=== PATIENT | male | born 1985 | race Caucasian/White ===

== ENCOUNTER 2021-06-12 15:51 | Emergency (ER) | payer OTHER, SELFPAY ==
--- NOTE | 2021-06-12 | ECG_ITS ---
Test Reason : CHEST PAIN Blood Pressure : / mmHG Vent. Rate : 115 BPM Atrial Rate : 115 BPM P-R Int : 142 ms QRS Dur : 098 ms QT Int : 308 ms P-R-T Axes : 059 079 057 degrees QTc Int : 426 ms Sinus tachycardia Possible Left atrial enlargement Incomplete right bundle branch block Abnormal ECG No previous ECGs available Referred By: Generic ED Physician Electronically Signed By:BUTCH DORAN
--- NOTE | ~2021-06-12 | CT_ITS ---
EXAMINATION: CTA CHEST PE STUDY CLINICAL INFORMATION: Chest pain tachycardia COVID-19 COMPARISON: Chest x-ray earlier tonight TECHNIQUE: Prior to contrast administration, noncontrast localization images were obtained. After the administration of 70 mL of Omnipaque 350 IV contrast, contiguous thin slice helical images were obtained through the thorax. Reformatted MIP images in the coronal and sagittal planes were obtained at the acquisition workstation. This CT examination was performed using dose optimization techniques as appropriate, variously including the following: *Automated exposure control *Adjustment of mA and/or kV according to patient size (this includes techniques or standardized protocols for targeted exams where dose is matched to indication/reason for exam; i.e. extremities or head) *Use of iterative reconstruction technique DLP: 327 mGy-cm. FINDINGS: The bolus timing on this study was acceptable for visualization of the pulmonary arterial tree. There are no intraluminal pulmonary arterial filling defects present to suggest pulmonary embolism. Underlying emphysematous changes seen in the lung apices right more so than left. There is patchy bilateral consolidative airspace disease seen some of which demonstrate air bronchograms. Infectious etiology would be strongly suspected with this appearance. Underlying medical lesions would be considered less likely with this distribution and pattern. No significant hilar or mediastinal adenopathy. There is no evidence of pleural effusion or pneumothorax. The heart is normal in size. No evidence of ventricular septal bowing or right heart strain. Great vessels are normal. Otherwise the mediastinum is unremarkable. There is no pericardial effusion or pericardial thickening. Limited evaluation of the upper abdominal viscera is unremarkable. CT/CT angio chest PE protocol IMPRESSION: No evidence for emboli. Patchy bilateral airspace disease some which demonstrate dense consolidations. Multifocal pneumonia would be suspected. There is underlying emphysematous changes with bulla seen more so in the right lung apex VTE: Negative
--- NOTE | ~2021-06-12 | XR_ITS ---
EXAMINATION: XR CHEST CLINICAL INFORMATION: Chest pain COMPARISON: None TECHNIQUE: 2 views of the chest were obtained. FINDINGS: Cardia mediastinal silhouette is normal in size. There is a 2.6 x 1.2 cm airspace opacity in the left upper lobe and a nodular opacity in the right lung base on the frontal radiograph. Hazy right suprahilar opacity. No pleural effusion or pneumothorax. XR/XR chest 2V IMPRESSION: Nodular opacities in the left upper lobe and right lung base as well as a hazy opacity in the right suprahilar region. This may be secondary to an infectious/inflammatory processes however underlying nodules are also possible. Recommend evaluation with CT scan of the chest to better evaluate.
[2021-06-12 16:04] VITALS: BP 126/81; PULSE 121; RESP 18; TEMP 37.4; O2SAT 97; BMI 20.9
--- NOTE | 2021-06-12 17:06 | ED_ITS ---
HPI - General Adult General Chief complaint: General Medical Stated complaint: chest pain not urinating fever +COVID Time Seen by Provider: 06/12/21 17:06 Source: patient History of Present Illness HPI narrative: Patient with a history of pneumothorax in his early 20s, known COVID-19 with symptoms x8 days. Presents with cough fevers chills and inability to tolerate p.o. liquids or solids. He states he has pain on breathing and coughing. Positive nausea vomiting and diarrhea. He states he has been unable to keep down solid food for 4 days. He has been taking liquids but then vomiting none. No dyspnea or wheezing. Risk factors for severe COVID disease include smoking. No history of hypertension diabetes or excessive BMI. No history of asthma pulmonary disease Related Data Previous Rx's Medication Instructions Recorded azithromycin 250 mg tablet See Rx Instructions .ROUTE 06/12/21 .COMPLEX #6 tab ondansetron HCl 4 mg tablet 4 mg PO Q8H PRN #10 tab 06/12/21 Allergies Allergy/AdvReac Type Severity Reaction Status Date / Time No Known Allergies Allergy Verified 06/12/21 16:11 Review of Systems Constitutional: Comments: Fevers chills and general malaise Cardiovascular: Comments: Palpitations. Chest pain with cough and deep inspiration Respiratory: Comments: Cough without dyspnea Gastrointestinal: Comments: Nausea vomiting diarrhea without abdominal pain Musculoskeletal: Comments: Generalized body aches Integumentary/Breasts: Comments: No rash PMFSH Social History Social History Patient Tobacco Use Status: Current everyday Tobacco user Smoked in Last 30 Days: Yes Use of substances other than those prescribed or required for medical reasons: Yes Substance Use Type: Marijuana Advance Directives: No Advance Directives Information Provided: No Physical Exam Vital Signs: Vital Signs: Last Vital Signs Temp 99.6 F 06/12/21 19:37 Pulse 110 H 06/12/21 19:37 Resp 19 06/12/21 19:37 BP 125/76 06/12/21 19:37 Pulse Ox 97 06/12/21 19:37 BMI result Body Mass Index 20.9 Const: Other: Awake alert no acute distress. Tachycardic. Blood pressure normal. Temperature 99.3? HENMT: Other: Mucosa dry Resp: Other: Clear and equal bilaterally with good air entry. No wheezes rales or rhonchi Cardio: Other: Tachycardic without murmurs rubs or gallops GI: Other: Soft nontender nondistended Skin: Other: Warm pink and dry without rash Neuro: Other: Alert and oriented. Nonfocal. Ambulatory Course Course Course Narrative: Chest pain in the setting of COVID-19 infection Musculoskeletal pain Bacterial superinfection PE Pneumothorax Dehydration Acute kidney injury Electrolyte imbalance IV fluids [place] [address] with a left shift. D-dimer [address] scan shows patchy bilateral airspace disease with some areas of dense consolidation. No evidence of PE His serology is positive for COVID. Given his high white count, however, and the findings on the CT scan, I suspect a bacterial secondary infection. Will treat with ceftriaxone and Zithromax. 8:26 p.m.. Repeat Zofran. P.o. fluid challenge. If tolerated, will discharge home Medical Decision Making Lab Data Result diagrams: 06/12/21 17:30 06/12/21 17:30 Labs: Lab Results 06/12/21 06/12/21 06/12/21 Range/Units 17:30 17:30 17:30 WBC 14.1 H (4.8-10.8) X10*3/uL RBC 4.46 L (4.60-5.80) X10*6/uL Hgb 14.9 (14.0-18.0) g/dl Hct 41.9 L (42.0-52.0) % MCV 93.9 (80.0-98.0) fL MCH 33.4 H (27.0-33.0) pg MCHC 35.6 (31.0-36.0) g/dl RDW 12.6 (11.0-16.0) % Plt Count 189 (160-400) X10*3/uL MPV 10.2 (9.4-12.4) fL Immature Gran % (Auto) 0.4 (0.0-0.4) % Neut % (Auto) 87.6 H (45-73) % Lymph % (Auto) 5.6 L (20-40) % [place] % (Auto) 6.3 (2-11) % Eos % (Auto) 0.0 (0-4) % Baso % (Auto) 0.1 (0-2) % Lymph # (Auto) 0.8 L (1.2-4.9) X10*3/uL [place] # (Auto) 0.9 (0.1-1.2) X10*3/uL Eos # (Auto) 0.0 (0.0-0.4) X10*3/uL Baso # (Auto) 0.0 (0.0-0.2) X10*3/uL Abs Immat Gran (auto) 0.06 H (0.00-0.03) X10*3/uL Absolute Neuts (auto) 12.3 H (2.0-8.3) x10*3/uL Absolute Nucleated RBC 0.000 (0.0-0.012) X10*3/uL Nucleated RBC % (auto) 0.0 (0.0-0.2) /100WBC D-Dimer High Sensitivty 792 NG/ML Sodium 132 L (135-145) mmol/L Potassium 3.6 (3.3-5.1) mmol/L Chloride 95 L (96-108) mmol/L Carbon Dioxide 24 (22-29) mmol/L Anion Gap 17 (12-20) BUN 18 H (9-16) mg/dL Creatinine 1.60 H (0.5-1.4) mg/dL Estim Creat Clear Calc 60.8 Estimated GFR 49 Random Glucose 121 H (60-115) mg/dL Calcium 8.6 (8.4-10.2) mg/dL Total Bilirubin 1.3 H (0.0-1.0) mg/dL AST 23 (5-37) U/L ALT 25 (0-40) U/L Alkaline Phosphatase 72 (39-117) U/L Total Protein 7.0 (6.5-8.0) g/dL Albumin 3.9 (3.5-5.0) g/dL COVID-19 ([place]) (Negative) COVID-19 Clin Com 06/12/21 Range/Units 17:30 WBC (4.8-10.8) X10*3/uL RBC (4.60-5.80) X10*6/uL Hgb (14.0-18.0) g/dl Hct (42.0-52.0) % MCV (80.0-98.0) fL MCH (27.0-33.0) pg MCHC (31.0-36.0) g/dl RDW (11.0-16.0) % Plt Count (160-400) X10*3/uL MPV (9.4-12.4) fL Immature Gran % (Auto) (0.0-0.4) % Neut % (Auto) (45-73) % Lymph % (Auto) (20-40) % [place] % (Auto) (2-11) % Eos % (Auto) (0-4) % Baso % (Auto) (0-2) % Lymph # (Auto) (1.2-4.9) X10*3/uL [place] # (Auto) (0.1-1.2) X10*3/uL Eos # (Auto) (0.0-0.4) X10*3/uL Baso # (Auto) (0.0-0.2) X10*3/uL Abs Immat Gran (auto) (0.00-0.03) X10*3/uL Absolute Neuts (auto) (2.0-8.3) x10*3/uL Absolute Nucleated RBC (0.0-0.012) X10*3/uL Nucleated RBC % (auto) (0.0-0.2) /100WBC D-Dimer High Sensitivty NG/ML Sodium (135-145) mmol/L Potassium (3.3-5.1) mmol/L Chloride (96-108) mmol/L Carbon Dioxide (22-29) mmol/L Anion Gap (12-20) BUN (9-16) mg/dL Creatinine (0.5-1.4) mg/dL Estim Creat Clear Calc Estimated GFR Random Glucose (60-115) mg/dL Calcium (8.4-10.2) mg/dL Total Bilirubin (0.0-1.0) mg/dL AST (5-37) U/L ALT (0-40) U/L Alkaline Phosphatase (39-117) U/L Total Protein (6.5-8.0) g/dL Albumin (3.5-5.0) g/dL COVID-19 ([place]) Positive A (Negative) COVID-19 Clin Com See Note Discharge Plan Discharge Clinical Impression: COVID-19, Acute dehydration Pneumonia Qualifiers: Pneumonia type: due to unspecified organism Laterality: bilateral Lung location: unspecified part of lung Qualified Code(s): J18.9 - Pneumonia, unspecified organism Patient Disposition: Home, Self-Care Instructions: Dehydration (ED), Community Acquired Pneumonia (ED), COVID-19 (Coronavirus Disease 2019) (ED) Prescriptions: New ondansetron HCl 4 mg tablet 4 mg PO Q8H PRN (Reason: nausea and vomiting) Qty: 10 RF: 0 azithromycin 250 mg tablet See Rx Instructions .ROUTE .COMPLEX Qty: 6 RF: 0
[2021-06-12] MEDS: 0.9 % Sodium Chloride 1,000 ML 999 ML IV ×2 (17:32→18:21)
[2021-06-12 17:35] LABS: MANUAL DIFF FLAG NO
[2021-06-12 17:38] VITALS: BP 118/81; PULSE 107; RESP 17; TEMP 37.1; O2SAT 95
[2021-06-12 17:38] LABS: Basophils Percent Auto 0.1 % (0-2); Hematocrit 41.9 % (42.0-52.0); Hemoglobin 14.9 g/dl (14.0-18.0); Imm Gran Abs Auto 0.06 X10*3/uL (0.00-0.03); Imm Gran Pct Auto 0.4 % (0.0-0.4); Lymphocytes Absolute Auto 0.8 X10*3/uL (1.2-4.9); Lymphocytes Percent Auto 5.6 % (20-40); Mean Corpuscular HGB Conc 35.6 g/dl (31.0-36.0); Mean Corpuscular Hemoglobin 33.4 pg (27.0-33.0); Mean Corpuscular Volume 93.9 fL (80.0-98.0); Mean Platelet Volume 10.2 fL (9.4-12.4); Monocytes Absolute Auto 0.9 X10*3/uL (0.1-1.2); Monocytes Percent Auto 6.3 % (2-11); Neutrophils Absolute Auto 12.3 x10*3/uL (2.0-8.3); Neutrophils Percent Auto 87.6 % (45-73); Platelet Count 189 X10*3/uL (160-400); Red Blood Count 4.46 X10*6/uL (4.60-5.80); Red Cell Distribution Width 12.6 % (11.0-16.0); White Blood Count 14.1 X10*3/uL (4.8-10.8)
[2021-06-12] MEDS: Ketorolac Tromethamine 30 MG/ML VIAL IVPUSH (17:41)
[2021-06-12] MEDS: ondansetron HCL 4 MG/2 ML VIAL IVPUSH ×2 (17:42→20:31)
[2021-06-12 17:46] LABS: COVID-19 Test Positive (Negative); IDNOW Serial# 08D9AD1C
[2021-06-12 17:47] LABS: D Dimer High Sensitivity 792 NG/ML
[2021-06-12 17:59] LABS: Alanine Aminotransferase 25 U/L (0-40); Albumin Level 3.9 g/dL (3.5-5.0); Alkaline Phosphatase 72 U/L (39-117); Anion Gap 17 (12-20); Aspartate Amino Transferase 23 U/L (5-37); Bilirubin Total 1.3 mg/dL (0.0-1.0); Blood Urea Nitrogen 18 mg/dL (9-16); Calcium 8.6 mg/dL (8.4-10.2); Carbon Dioxide 24 mmol/L (22-29); Chloride 95 mmol/L (96-108); Creatinine Clr Calc Pharmacy 60.8; Estimated Glomerular Filt Rate 49; Glucose Random 121 mg/dL (60-115); Potassium 3.6 mmol/L (3.3-5.1); Sodium 132 mmol/L (135-145)
[2021-06-12] MEDS: Lidocaine HCl Viscous 2 % 15 ML SOLUTION PO (18:08)
[2021-06-12] MEDS: Magnesium Hydrox/Alum Hydrox 30 ML ORAL.SUSP PO (18:08)
[2021-06-12 18:17] VITALS: BP 115/72; PULSE 100; RESP 23; O2SAT 95
[2021-06-12] MEDS: iohexoL 350 MG/ML 100 ML INFUS..BTL IV (18:54)
[2021-06-12 19:37] VITALS: BP 125/76; PULSE 110; RESP 19; TEMP 37.6; O2SAT 97
[2021-06-12] MEDS: cefTRIAXone sodium 1 GM in 0.9 % Sodium Chloride 50 ML IV (20:31)
[2021-06-12] MEDS: Azithromycin 500 MG TABLET PO (20:32)
[2021-06-12 20:35] VITALS: BP 125/76; PULSE 114; RESP 20; O2SAT 96
--- NOTE | 2021-06-12 20:38 | PC.NURSE ---
pt a&o, no increase sob or chest pain. pt reports being achy in his leg, fluid running and medicated per Mar. Pt had Po challenge and tolerated well .
== END 2021-06-12 22:04 | disposition home or self-care (01) ==
PROVIDERS: Emergency Provider Emergency Medicine; PCP Family Medicine
DX: U07.1 COVID-19 (principal); R07.89 Other chest pain; R50.9 Fever, unspecified; F17.210 Nicotine dependence, cigarettes, uncomplicated; Z71.6 Tobacco abuse counseling; Z79.899 Other long term (current) drug therapy
CPT/HCPCS: 36415; 71046; 71275; 80053; 85025; 85379; 87635; 93005; 96361; 96365; 96375; 96376; 99284; J0696; J1885; J2405; Q9967

== ENCOUNTER 2021-06-28 08:32 | Emergency (ER) | payer OTHER, SELFPAY ==
--- NOTE | ~2021-06-28 | XR_ITS ---
EXAMINATION: XR CHEST CLINICAL INFORMATION: Right-sided chest pain and shortness of breath COMPARISON: Previous chest x-ray and chest CT a 06/12/2021 TECHNIQUE: 2 views of the chest were obtained. FINDINGS: There are patchy areas of bilateral multilobar airspace disease, greatest in the right upper lobe and left lower lobe. These areas appear slightly increased in size from 06/12/2021 exam. No new infiltrate is seen. There is no pleural effusion or pneumothorax. Bony structures are unremarkable. XR/XR chest 2V IMPRESSION: Patchy bilateral airspace disease slightly increased from June 2021 exam. This probably represents bilateral multilobar pneumonia.
[2021-06-28 08:35] VITALS: BP 133/82; PULSE 103; RESP 18; TEMP 36.7; O2SAT 100; BMI 25.0
--- NOTE | 2021-06-28 08:35 | ECG_ITS ---
Test Reason : SOB Blood Pressure : / mmHG Vent. Rate : 096 BPM Atrial Rate : 096 BPM P-R Int : 158 ms QRS Dur : 098 ms QT Int : 348 ms P-R-T Axes : 063 055 054 degrees QTc Int : 439 ms Normal sinus rhythm Normal ECG When compared with ECG of 12-JUN-2021 16:04, Incomplete right bundle branch block is no longer Present Referred By: Vivi Zarate Electronically Signed By:SOWMYA OJEDA MD
--- NOTE | 2021-06-28 08:36 | ED_ITS ---
HPI - Chest Pain General Chief Complaint: Chest Pain Stated Complaint: heavy chest pain Time Seen by Provider: 06/28/21 08:35 Source: patient Mode of arrival: ambulatory Limitations: no limitations History of Present Illness HPI narrative: 35 y/o male with history of COVID 19 earlier this month (06/04), history of PTX in early who presents to the ER with chest pains, coughing and SOB for the last 4-5 days. He reports being seen here on June 12, confirmed to have COVID-19 as well as probable secondary bacterial pneumonia with bilateral infiltrates on CT scan. He was discharged with oral antibiotics. He reports after he completed the antibiotics he was feeling better and no longer having brown phlegm production. About 4-5 days ago he started having increased cough, shortness of breath, and bringing up yellow phlegm. This morning he woke up with central chest pain and right-sided chest pain, worse with coughing and movement. He denies any fever or chills. He denies any difficulty breathing. He states his breathing feels better since coming to the ER. MD complaint: chest pain and chest heaviness Onset (ago): day(s) (4-5) Timing of current episode: constant Prior episodes: Yes Onset: during rest Pain location: substernal and right chest Pain radiation: none Severity: moderate Pain scale (0-10): 5 Quality: heaviness Relieving factors: rest Exacerbating factors: inspiration, palpation and movement Context: recent illness Associated symptoms: cough Treatment prior to arrival: none Risk Factors Coronary artery disease risk factors: smoking history Thoracic aortic dissection risk factors: none Related Data Previous Rx's Medication Instructions Recorded azithromycin 250 mg tablet See Rx Instructions .ROUTE 06/12/21 .COMPLEX #6 tab ondansetron HCl 4 mg tablet 4 mg PO Q8H PRN #10 tab 06/12/21 albuterol sulfate 90 mcg/actuation 1 inh INHALATION QID PRN #6.7 g 06/28/21 aerosol inhaler amoxicillin 875 mg-potassium 1 tab PO Q12H #20 tab 06/28/21 clavulanate 125 mg tablet (Augmentin) benzonatate 100 mg capsule 100 mg PO TID PRN #30 cap 06/28/21 clarithromycin 500 mg tablet 500 mg PO BID #20 tab 06/28/21 prednisone 20 mg tablet 40 mg PO DAILY #10 tab 06/28/21 Allergies Allergy/AdvReac Type Severity Reaction Status Date / Time No Known Allergies Allergy Verified 06/28/21 08:41 Review of Systems Verdana 4l Review of Systems: Verdana 4d Verdana 4d Constitutional: No Fever, No Chills ENT/Mouth: No sore throat, No Rhinorrhea Cardiovascular: + Chest Pain, + SOB, No Orthopnea, No Edema Respiratory: + Cough, + Sputum, No Wheezing, No dyspnea Gastrointestinal: No Nausea, No Vomiting, NoNo Diarrhea, No abdominal Pain Genitourinary: No Dysuria, No Urinary Frequency, No Hematuria Musculoskeletal: No joint pain, No Myalgias Skin: No Skin Lesions, No rash Neuro: + Weakness, No Numbness, No Dizziness, + Headache Psych: No Anxiety/Panic Heme/Lymph: No Bruising, No Lymphadenopathy PMFSH Past Medical History Medical History (Updated 06/28/21 @ 09:29 by KAVEH Etienne) COVID-19 Social History Social History Patient Tobacco Use Status: Current everyday Tobacco user Substance Use Type: Marijuana Advance Directives: No Advance Directives Information Provided: No Physical Exam Verdana 4l Vital Signs: Verdana 4d Verdana 4d Vital Signs: Verdana 4d Verdana 4Bd Last Vital Signs Verdana 4d Portfolio Manager New 4d Portfolio Manager New 4d Temp 98.1 F 06/28/21 08:35 Portfolio Manager New 4d Pulse 98 06/28/21 09:07 Portfolio Manager New 4d Resp 14 06/28/21 09:07 BP 125/79 06/28/21 09:07 Pulse Ox 97 06/28/21 09:07 BMI result Body Mass Index 25.0 Appearance: Alert. Oriented X3. No acute distress. Eyes: Pupils equal, round and reactive to light. ENT: Pharynx normal. Neck: Normal inspection. Neck supple. CVS: Normal heart rate and rhythm. Pulses normal. Right sided anterior chest wall w/ mild tenderness. Respiratory: No respiratory distress. Breath sounds coarse in right upper lobe but no wheezes or rhonchi. Abdomen: Soft and nontender. +BS x4 Skin: Skin warm and dry. Normal skin color. Normal skin turgor. No rashes. Extremities: No lower extremity edema. Negative Albert's sign Neuro: Oriented X 3. No motor deficit. No sensory deficit. Course Course Course Narrative: 35 y/o male with history of recent COVID-19 & PNA, active smoker presenting with recurrent productive cough, SOB and chest pain. SpO2 100% on arrival w/ HR 103. Doubt PE with productive cough. He had a recent negative CTA on 06/12. No FRAGA. Doubt cardiac etiology. Will check EKG, CXR and influenza swab. Reevaluation(s) Reevaluation #1: EKG benign, no STEMI or ischemic changes. CXR w/ bilateral PNA. He remains in no respiratory distress w/ SPO2 100%. Will plan for d/c with double coverage abx for CAP, prednisone, albuterol and recs for Mucinex. Encouraged to f/u with his PCP. Work note provided per request. MDM - Chest Pain Medical Records Data Attestation: I reviewed the patient's medical records. Lab Data Attestation: I reviewed the patient's lab results. ECG Data ECG #1: Attestation: I personally reviewed and interpreted this ECG as follows: ECG interpretation date: 06/28/21 ECG interpretation time: 09:49 Prior ECG tracings: available for review Interpretation: normal sinus rhythm, HR 96 bpm, normal IN interval, no ST segment elevations or depressions. No significant change from 06/12/21. Critical Care Time Critical Care Time Critical Care Time: No Discharge Plan Discharge Clinical Impression: Bilateral pneumonia Patient Disposition: Home, Self-Care Instructions: Community Acquired Pneumonia (DC) Additional Instructions: Your EKG today was normal. Your x-ray showed bilateral pneumonia. Take the prescribed antibiotics as directed - complete the entire course Recommend adding Mucinex 1200 mg two times per day - found over the counter Rest and drink plenty of fluids Do your best to stop or cut back on smoking (especially while you are sick) Follow up with your Primary Care Doctor If your Flu test is positive we will call you If you develop new or worsening symptoms call 911 or come back to the ER for further evaluation. Prescriptions: New amoxicillin-pot clavulanate [Augmentin] 875-125 mg tablet 1 tab PO Q12H Qty: 20 0RF clarithromycin 500 mg tablet 500 mg PO BID Qty: 20 0RF prednisone 20 mg tablet 40 mg PO DAILY Qty: 10 0RF albuterol sulfate 90 mcg/actuation HFA aerosol inhaler 1 inh inhalation QID PRN (Reason: shortness of breath or wheezing) Qty: 6.7 0RF benzonatate 100 mg capsule 100 mg PO TID PRN (Reason: cough) Qty: 30 0RF No Action ondansetron HCl 4 mg tablet 4 mg PO Q8H PRN (Reason: nausea and vomiting) Qty: 10 0RF azithromycin 250 mg tablet See Rx Instructions .ROUTE .COMPLEX Qty: 6 0RF Rx Instructions: For 250 mg dose pack: take 500 mg today (day 1), then 250 mg for 4 days (days 2-5) Stand Alone Forms: Work/School Release Interventions: ED Discharge Assessment Last Done: 06/28/21 09:48
[2021-06-28 09:07] VITALS: BP 125/79; PULSE 98; RESP 14; O2SAT 97
--- NOTE | 2021-06-28 09:50 | PC.NURSE ---
OK FOR DC HOME PER PROVIDER. SWAB SENT. PT AWARE THAT HE WILL BE CALLED WITH SWAB RESULTS.
[2021-06-28 09:52] VITALS: BP 112/82; PULSE 88; RESP 16; O2SAT 98
[2021-06-29 06:56] LABS: IDNOW Serial# 9DD0AD1C; Influenza A Negative (Negative); Influenza B2 Negative (Negative)
== END 2021-06-28 09:53 | disposition home or self-care (01) ==
PROVIDERS: Physician Assistant; Emergency Provider Emergency Medicine; PCP Family Medicine
DX: J15.9 Unspecified bacterial pneumonia (principal); F17.200 Nicotine dependence, unspecified, uncomplicated; F12.90 Cannabis use, unspecified, uncomplicated
CPT/HCPCS: 71046; 87502; 93005; 99283

== ENCOUNTER 2022-06-09 18:35 | Emergency (ER) | payer SELFPAY ==
--- NOTE | ~2022-06-09 | CT_ITS ---
EXAMINATION: CT ABDOMEN AND PELVIS WITHOUT CONTRAST CLINICAL INFORMATION: Left flank pain. Nausea. COMPARISON: None TECHNIQUE: Multidetector volumetric imaging was performed from the superior aspect of the liver through the pubic symphysis. Sagittal and coronal reformatted images were obtained on the technologist's workstation. This CT examination was performed using dose optimization techniques as appropriate, variously including the following: *Automated exposure control *Adjustment of mA and/or kV according to patient size (this includes techniques or standardized protocols for targeted exams where dose is matched to indication/reason for exam; i.e. extremities or head) *Use of iterative reconstruction technique DLP: 537 mGy-cm FINDINGS: LUNG BASES: The visualized lung bases are unremarkable. Small sliding-type hiatal hernia. LIVER, GALLBLADDER, AND BILIARY TREE: The liver is normal in size, shape, and attenuation. No focal hepatic lesion or biliary ductal dilatation is present. The gallbladder is unremarkable with no evidence of radiopaque gallstones, gallbladder wall thickening, or obvious pericholecystic inflammatory changes. PANCREAS: Unremarkable. SPLEEN: Unremarkable. ADRENAL GLANDS: Unremarkable. KIDNEYS AND URETERS: A 2 mm calculus is present within a calyx in the right lower renal pole, 7 cm deep to the skin surface of the right posterior mid axillary line. No additional renal calculi are identified. Kidneys normal in size and contour. Trace left peripelvic fat stranding. No perinephric fat stranding. No suspicious renal lesions are identified on this unenhanced study. A 3 mm calculus is present at the left ureterovesical junction. This produces mild left hydroureteronephrosis. No right-sided hydronephrosis or hydroureter. BLADDER: Unremarkable. GASTROINTESTINAL TRACT: Small sliding type hernia. Stomach, small bowel, and colon are normal in caliber without bowel wall thickening or surrounding inflammatory change. Normal appendix. No intraperitoneal free fluid or free air. ABDOMINAL WALL: No significant hernia is appreciated. LYMPH NODES: No adenopathy. VASCULAR: Minimal calcific atherosclerosis abdominal aorta. No aneurysmal dilatation. PELVIC VISCERA: Small dystrophic calcifications in the prostate gland. Prostate gland is normal in size. OSSEOUS STRUCTURES: No acute osseous abnormalities in the lumbar spine and pelvis. CT/CT abdomen pelvis wo IV con IMPRESSION: 1. A 3 mm calculus at the left ureterovesical junction produces mild left hydroureteronephrosis. 2. A 2 mm nonobstructing calculus in the right lower renal pole. 3. Small sliding-type hiatal hernia. Fleischner guidelines were followed.
--- NOTE | 2022-06-09 18:47 | ED.ABDPAIN ---
HPI - Abdominal Pain General Chief Complaint: Urogenital-Male <KAVEH Pugh - Last Filed: 06/09/22 20:48> Stated Complaint: severe abdominal pain, vomiting <KAVEH Pugh Last Filed: 06/09/22 20:48> Time Seen by Provider: 06/09/22 20:11 <KAVEH Pugh Last Filed: 06/09/22 20:48> Source: patient and family <KAVEH Pugh Last Filed: 06/09/22 20:48> Mode of arrival: ambulatory <KAVEH Pugh Last Filed: 06/09/22 20:48> Limitations: no limitations <KAVEH Pugh Last Filed: 06/09/22 20:48> History of Present Illness HPI narrative: 36yoM presenting to the ED c c/o left back/flank pain radiating to his left lower quadrant with associated nausea that started 2 hours prior to arrival. Reports he has never had this pain in the past. Denies any fevers, vomiting, chest pain or shortness of breath, diarrhea, dysuria hematuria or any other symptoms complaints or concerns at this time. Denies recent travel or sick contacts. <KAVEH Pugh - Last Filed: 06/09/22 20:48> MD elicited complaint: abdominal pain and flank pain <KAVEH Pugh Last Filed: 06/09/22 20:48> Onset (ago): hour(s) (2 hours prior to arrival) <KAVEH Pugh Last Filed: 06/09/22 20:48> Pain Consistency: constant <KAVEH Pugh Last Filed: 06/09/22 20:48> Location: L flank <KAVEH Pugh Last Filed: 06/09/22 20:48> Severity: moderate <KAVEH Pugh Last Filed: 06/09/22 20:48> Quality: aching and sharp <KAVEH Pugh Last Filed: 06/09/22 20:48> Radiation: LLQ <KAVEH Pugh Last Filed: 06/09/22 20:48> Exacerbating factors: nothing <KAVEH Pugh Last Filed: 06/09/22 20:48> Relieving factors: nothing <KAVEH Pugh Last Filed: 06/09/22 20:48> Associated symptoms: nausea <KAVEH Pugh Last Filed: 06/09/22 20:48> Related Data Home Medications: Previous Rx's Medication Instructions Recorded azithromycin 250 mg tablet See Rx Instructions PO .COMPLEX #6 06/12/21 tabs ondansetron HCl 4 mg tablet 4 mg PO Q8H PRN nausea and 06/12/21 vomiting #10 tabs albuterol sulfate 90 mcg/actuation 1 inh inhalation QID PRN shortness 06/28/21 aerosol inhaler of breath or wheezing #6.7 grams amoxicillin 875 mg-potassium 1 tab PO Q12H #20 tabs 06/28/21 clavulanate 125 mg tablet (Augmentin) benzonatate 100 mg capsule 100 mg PO TID PRN cough #30 caps 06/28/21 clarithromycin 500 mg tablet 500 mg PO BID #20 tabs 06/28/21 prednisone 20 mg tablet 40 mg PO DAILY #10 tabs 06/28/21 ketorolac 10 mg tablet 10 mg PO Q8H #14 tabs 06/09/22 levofloxacin 750 mg tablet 750 mg PO DAILY 10 days #10 tabs 06/09/22 ondansetron 4 mg disintegrating 4 mg PO Q8H #14 tabs 06/09/22 tablet oxycodone 5 mg tablet 5 mg PO Q6H PRN pain #14 tabs 06/09/22 tamsulosin 0.4 mg capsule (Flomax) 0.4 mg PO DAILY 5 days #5 caps 06/09/22 <KAVEH Pugh Last Filed: 06/09/22 20:48> Allergies/Adverse Reactions: Allergies Allergy/AdvReac Type Severity Reaction Status Date / Time No Known Allergies Allergy Verified 06/28/21 08:41 <KAVEH Pugh Last Filed: 06/09/22 20:48> Review of Systems Review of Systems Constitutional : No Fever, No Chills, No Night Sweats, No Fatigue, No Malaise Cardiovascular : No Chest Pain, No SOB Respiratory : No Cough, No Sputum, No Wheezing, No Dyspnea Gastrointestinal : + Nausea, No Vomiting, No Diarrhea, + abdominal Pain, No Hematochezia, No Melena Genitourinary : No irregular bleeding, No Dysuria, No Urinary Frequency, No Hematuria,No Urinary Incontinence, No Urgency, + Flank Pain Musculoskeletal : No joint pain, No Myalgias, No Joint Swelling Skin : No Skin Lesions, No rash Neuro : No Weakness, No Numbness, No Paresthesias, No Loss of Consciousness, No Dizziness, No Headache Heme/Lymph: No Lymphadenopathy Endocrine : No Temperature Intolerance <KAVEH Pugh - Last Filed: 06/09/22 20:48> Yes all other systems are reviewed and are negative <KAVEH Pugh - Last Filed: 06/09/22 20:48> [facility] Past Medical History Attestation statement: The following information was validated with the patient. <KAVEH Pugh - Last Filed: 06/09/22 20:48> Source: old records reviewed, obtained from family and nursing notes reviewed <KAVEH Pugh Last Filed: 06/09/22 20:48> Medical History: Medical History COVID-19 <KAVEH Pugh - Last Filed: 06/09/22 20:48> Social History Social History: Social History Alcohol intake: never Patient Tobacco Use Status: Current everyday Tobacco user Smoked in Last 30 Days: Yes Use of substances other than those prescribed or required for medical reasons: No Substance Use Type: Marijuana Advance Directives: No Advance Directives Information Provided: No <KAVEH Pugh Last Filed: 06/09/22 20:48> Physical Exam ED Vital Signs: Vital Signs - 24 hr 06/09/22 18:49 06/09/22 20:21 06/09/22 20:25 Temperature 98.4 F Pulse Rate 67 52 Respiratory Rate 16 18 18 Blood Pressure 140/92 H 117/77 Pulse Oximetry 99 99 Oxygen Delivery Method Room Air Room Air BMI result Body Mass Index 22.3 Vital signs have been reviewed and all within normal limits <KAVEH Pugh Last Filed: 06/09/22 20:48> Vital Signs - 24 hr 06/09/22 18:49 06/09/22 20:21 06/09/22 20:25 Temperature 98.4 F Pulse Rate 67 52 Respiratory Rate 16 18 18 Blood Pressure 140/92 H 117/77 Pulse Oximetry 99 99 Oxygen Delivery Method Room Air Room Air BMI result Body Mass Index 22.3 <Loren Madrid NP - Last Filed: 06/09/22 21:58> Appearance: Alert. Oriented X3. In pain otherwise no other acute distress. Head: Normal external exam. Normocephalic. Eyes: PERRLA. EOMI. Conjunctiva and sclera normal. Eyelids normal. ENT: Pharynx normal. Uvula midline. Moist mucous membranes. No trismus noted. No drooling noted. No muffled voice noted. Neck: Normal inspection. Neck supple. FROM. No adenopathy. No meningeal signs. CVS: Normal heart rate and rhythm. Heart sound normal. No murmurs noted. Pulses normal throughout. Respiratory: No respiratory distress. Painless inspiration. Breath sounds normal. No wheezes/rales/rhonchi noted. Chest nontender. No accessory muscle usage noted or decreased air movement noted. Abdomen: Soft and moderate tenderness palpation the left flank/left lower quadrant with guarding. Nondistended. No rigidity. Bowel sounds normal in all 4 quadrants. No distention noted. No organomegaly noted. No visible injury noted. No rebound tenderness. Negative Rovsing sign. Negative obturator's sign. Negative psoas sign. Negative Hensley sign. Back: + left flank CVA tenderness. No R CVAt noted. Full range of motion noted. Skin: Skin warm and dry. Normal skin color. Normal skin turgor. No rashes/lesions/lacerations noted. Extremities: Extremities exhibit normal range of motion. Extremities nontender. Neuro: Oriented X 3. No motor deficit. No sensory deficit. Reflexes normal. Normal steady gait. CN's II-XII intact bilaterally? <KAVEH Pugh - Last Filed: 06/09/22 20:48> Course Course Course Narrative: 18:50pm - 36yoM presenting to the ED c c/o left back/flank pain radiating to his left lower quadrant with associated nausea that started 2 hours prior to arrival. Reports he has never had this pain in the past. Denies any fevers, vomiting, chest pain or shortness of breath, diarrhea, dysuria hematuria or any other symptoms complaints or concerns at this time. Denies recent travel or sick contacts. Plan: Patient appears very uncomfortable in triage, labs, UA, CT scan abdomen pelvis with IV contrast ordered at this time. Will re-evaluate. <KAVEH Pugh - Last Filed: 06/09/22 20:48> 18:50pm - 36yoM presenting to the ED c c/o left back/flank pain radiating to his left lower quadrant with associated nausea that started 2 hours prior to arrival. Reports he has never had this pain in the past. Denies any fevers, vomiting, chest pain or shortness of breath, diarrhea, dysuria hematuria or any other symptoms complaints or concerns at this time. Denies recent travel or sick contacts. Plan: Patient appears very uncomfortable in triage, labs, UA, CT scan abdomen pelvis with IV contrast ordered at this time. Will re-evaluate. 21:40 CT scan indicates bilateral kidney stones, obstruction to the left, physical exam is indicative pyelonephritis. White count is 16. Feel this patient requires admission however this patient is very upset, would like to leave against medical advice patient is oriented x4, able to make his own decisions. Patient's significant other is with him at bedside very angry as well. Patient understands risks versus benefits of leaving. Discussion with prior provider, patient told part provider that he does not have insurance, does not want fluid or admission. <Loren Madrid NP - Last Filed: 06/09/22 21:58> Reevaluation(s) Reevaluation #1: - labs obtained patient leukocytosis of 16,000. Random glucose 133. Otherwise all other labs are within normal limits. Patient negative for COVID/RSV/flu. - CT scan abdomen pelvis without IV contrast revealed a 3 mm calculus at the left UVJ with mild left hydronephrosis. And a 2 mm nonobstructing calculus in the right lower renal pole. And a small sliding type hiatal hernia otherwise no other acute processes. - therefore patient was given 4 mg of Zofran, 60 mg of IM Toradol, 5 mg of oxycodone and 4 mg of morphine the patient's pain is controlled. He is tolerating p.o. fluids. Therefore at this time will DC home with symptomatic treatment instructions return if any new or worsening symptoms follow up with PCP/neurology. Patient understands agrees with this plan. <KAVEH Pugh - Last Filed: 06/09/22 20:48> Time: 20:23 <KAVEH Pugh - Last Filed: 06/09/22 20:48> Medical Decision Making Lab Data Result Diagrams: 06/09/22 19:35 06/09/22 19:35 <KAVEH Pugh - Last Filed: 06/09/22 20:48> Labs: Lab Results 06/09/22 06/09/22 06/09/22 Range/Units 19:35 19:35 19:35 WBC 16.4 H (4.8-10.8) X10*3/uL RBC 4.67 (4.60-5.80) X10*6/uL Hgb 15.6 (14.0-18.0) g/dl Hct 44.8 (42.0-52.0) % MCV 95.9 (80.0-98.0) fL MCH 33.4 H (27.0-33.0) pg MCHC 34.8 (31.0-36.0) g/dl RDW 12.7 (11.0-16.0) % Plt Count 225 (160-400) X10*3/uL MPV 9.3 L (9.4-12.4) fL Immature Gran % (Auto) 0.4 (0.0-0.4) % Neut % (Auto) 84.7 H (45-73) % Lymph % (Auto) 9.9 L (20-40) % [place] % (Auto) 4.2 (2-11) % Eos % (Auto) 0.5 (0-4) % Baso % (Auto) 0.3 (0-2) % Lymph # (Auto) 1.6 (1.2-4.9) X10*3/uL [place] # (Auto) 0.7 (0.1-1.2) X10*3/uL Eos # (Auto) 0.1 (0.0-0.4) X10*3/uL Baso # (Auto) 0.1 (0.0-0.2) X10*3/uL Abs Immat Gran (auto) 0.06 H (0.00-0.03) X10*3/uL Absolute Neuts (auto) 13.9 H (2.0-8.3) x10*3/uL Absolute Nucleated RBC 0.000 (0.0-0.012) X10*3/uL Nucleated RBC % (auto) 0.0 (0.0-0.2) /100WBC PT 12.0 (10.0-13.1) SEC INR 1.0 (0.9-1.1) Sodium 142 (135-145) mmol/L Potassium 5.1 D (3.3-5.1) mmol/L Chloride 107 (96-108) mmol/L Carbon Dioxide 25 (22-29) mmol/L Anion Gap 15 (12-20) BUN 10 (9-16) mg/dL Creatinine 1.24 (0.5-1.4) mg/dL Estim Creat Clear Calc 82.9 Estimated GFR > 60 Random Glucose 133 H (60-115) mg/dL Calcium 10.2 D (8.4-10.2) mg/dL Magnesium 1.9 (1.6-2.6) mg/dL Total Bilirubin 0.7 (0.0-1.0) mg/dL AST 19 (5-37) U/L ALT 19 (0-40) U/L Alkaline Phosphatase 69 (39-117) U/L Total Protein 7.2 (6.5-8.0) g/dL Albumin 4.7 (3.5-5.0) g/dL Influenza Type A (PCR) (Negative) Influenza Type B (PCR) (Negative) RSV RNA Qual (PCR) (Negative) SARS-CoV-2 RNA (RT-PCR) (Negative) 06/09/22 Range/Units 19:36 WBC (4.8-10.8) X10*3/uL RBC (4.60-5.80) X10*6/uL Hgb (14.0-18.0) g/dl Hct (42.0-52.0) % MCV (80.0-98.0) fL MCH (27.0-33.0) pg MCHC (31.0-36.0) g/dl RDW (11.0-16.0) % Plt Count (160-400) X10*3/uL MPV (9.4-12.4) fL Immature Gran % (Auto) (0.0-0.4) % Neut % (Auto) (45-73) % Lymph % (Auto) (20-40) % [place] % (Auto) (2-11) % Eos % (Auto) (0-4) % Baso % (Auto) (0-2) % Lymph # (Auto) (1.2-4.9) X10*3/uL [place] # (Auto) (0.1-1.2) X10*3/uL Eos # (Auto) (0.0-0.4) X10*3/uL Baso # (Auto) (0.0-0.2) X10*3/uL Abs Immat Gran (auto) (0.00-0.03) X10*3/uL Absolute Neuts (auto) (2.0-8.3) x10*3/uL Absolute Nucleated RBC (0.0-0.012) X10*3/uL Nucleated RBC % (auto) (0.0-0.2) /100WBC PT (10.0-13.1) SEC INR (0.9-1.1) Sodium (135-145) mmol/L Potassium (3.3-5.1) mmol/L Chloride (96-108) mmol/L Carbon Dioxide (22-29) mmol/L Anion Gap (12-20) BUN (9-16) mg/dL Creatinine (0.5-1.4) mg/dL Estim Creat Clear Calc Estimated GFR Random Glucose (60-115) mg/dL Calcium (8.4-10.2) mg/dL Magnesium (1.6-2.6) mg/dL Total Bilirubin (0.0-1.0) mg/dL AST (5-37) U/L ALT (0-40) U/L Alkaline Phosphatase (39-117) U/L Total Protein (6.5-8.0) g/dL Albumin (3.5-5.0) g/dL Influenza Type A (PCR) NEGATIVE (Negative) Influenza Type B (PCR) NEGATIVE (Negative) RSV RNA Qual (PCR) NEGATIVE (Negative) SARS-CoV-2 RNA (RT-PCR) NEGATIVE (Negative) <KAVEH Pugh - Last Filed: 06/09/22 20:48> Lab Results 06/09/22 06/09/22 06/09/22 Range/Units 19:35 19:35 19:35 WBC 16.4 H (4.8-10.8) X10*3/uL RBC 4.67 (4.60-5.80) X10*6/uL Hgb 15.6 (14.0-18.0) g/dl Hct 44.8 (42.0-52.0) % MCV 95.9 (80.0-98.0) fL MCH 33.4 H (27.0-33.0) pg MCHC 34.8 (31.0-36.0) g/dl RDW 12.7 (11.0-16.0) % Plt Count 225 (160-400) X10*3/uL MPV 9.3 L (9.4-12.4) fL Immature Gran % (Auto) 0.4 (0.0-0.4) % Neut % (Auto) 84.7 H (45-73) % Lymph % (Auto) 9.9 L (20-40) % [place] % (Auto) 4.2 (2-11) % Eos % (Auto) 0.5 (0-4) % Baso % (Auto) 0.3 (0-2) % Lymph # (Auto) 1.6 (1.2-4.9) X10*3/uL [place] # (Auto) 0.7 (0.1-1.2) X10*3/uL Eos # (Auto) 0.1 (0.0-0.4) X10*3/uL Baso # (Auto) 0.1 (0.0-0.2) X10*3/uL Abs Immat Gran (auto) 0.06 H (0.00-0.03) X10*3/uL Absolute Neuts (auto) 13.9 H (2.0-8.3) x10*3/uL Absolute Nucleated RBC 0.000 (0.0-0.012) X10*3/uL Nucleated RBC % (auto) 0.0 (0.0-0.2) /100WBC PT 12.0 (10.0-13.1) SEC INR 1.0 (0.9-1.1) Sodium 142 (135-145) mmol/L Potassium 5.1 D (3.3-5.1) mmol/L Chloride 107 (96-108) mmol/L Carbon Dioxide 25 (22-29) mmol/L Anion Gap 15 (12-20) BUN 10 (9-16) mg/dL Creatinine 1.24 (0.5-1.4) mg/dL Estim Creat Clear Calc 82.9 Estimated GFR > 60 Random Glucose 133 H (60-115) mg/dL Calcium 10.2 D (8.4-10.2) mg/dL Magnesium 1.9 (1.6-2.6) mg/dL Total Bilirubin 0.7 (0.0-1.0) mg/dL AST 19 (5-37) U/L ALT 19 (0-40) U/L Alkaline Phosphatase 69 (39-117) U/L Total Protein 7.2 (6.5-8.0) g/dL Albumin 4.7 (3.5-5.0) g/dL Influenza Type A (PCR) (Negative) Influenza Type B (PCR) (Negative) RSV RNA Qual (PCR) (Negative) SARS-CoV-2 RNA (RT-PCR) (Negative) 06/09/22 Range/Units 19:36 WBC (4.8-10.8) X10*3/uL RBC (4.60-5.80) X10*6/uL Hgb (14.0-18.0) g/dl Hct (42.0-52.0) % MCV (80.0-98.0) fL MCH (27.0-33.0) pg MCHC (31.0-36.0) g/dl RDW (11.0-16.0) % Plt Count (160-400) X10*3/uL MPV (9.4-12.4) fL Immature Gran % (Auto) (0.0-0.4) % Neut % (Auto) (45-73) % Lymph % (Auto) (20-40) % [place] % (Auto) (2-11) % Eos % (Auto) (0-4) % Baso % (Auto) (0-2) % Lymph # (Auto) (1.2-4.9) X10*3/uL [place] # (Auto) (0.1-1.2) X10*3/uL Eos # (Auto) (0.0-0.4) X10*3/uL Baso # (Auto) (0.0-0.2) X10*3/uL Abs Immat Gran (auto) (0.00-0.03) X10*3/uL Absolute Neuts (auto) (2.0-8.3) x10*3/uL Absolute Nucleated RBC (0.0-0.012) X10*3/uL Nucleated RBC % (auto) (0.0-0.2) /100WBC PT (10.0-13.1) SEC INR (0.9-1.1) Sodium (135-145) mmol/L Potassium (3.3-5.1) mmol/L Chloride (96-108) mmol/L Carbon Dioxide (22-29) mmol/L Anion Gap (12-20) BUN (9-16) mg/dL Creatinine (0.5-1.4) mg/dL Estim Creat Clear Calc Estimated GFR Random Glucose (60-115) mg/dL Calcium (8.4-10.2) mg/dL Magnesium (1.6-2.6) mg/dL Total Bilirubin (0.0-1.0) mg/dL AST (5-37) U/L ALT (0-40) U/L Alkaline Phosphatase (39-117) U/L Total Protein (6.5-8.0) g/dL Albumin (3.5-5.0) g/dL Influenza Type A (PCR) NEGATIVE (Negative) Influenza Type B (PCR) NEGATIVE (Negative) RSV RNA Qual (PCR) NEGATIVE (Negative) SARS-CoV-2 RNA (RT-PCR) NEGATIVE (Negative) <Loren Madrid NP - Last Filed: 06/09/22 21:58> Medications Administered Discontinued Medications Generic Name Dose Route Start Last Admin Trade Name Freq PRN Reason Stop Dose Admin Dexamethasone 10 mg 06/09/22 20:25 06/09/22 20:39 Dexamethasone 2 Mg Tablet PO 06/09/22 20:26 10 mg ONCE ONE Administration Ketorolac Tromethamine 60 mg 06/09/22 20:16 06/09/22 20:26 Ketorolac Tromethamine 60 Mg/2 Ml Vial IM 06/09/22 20:17 60 mg ONCE ONE Administration Morphine Sulfate 4 mg 06/09/22 20:16 06/09/22 20:25 Morphine Sulfate 4 Mg/Ml Cartridge IM 06/09/22 20:17 4 mg ONCE ONE Administration Protocol Ondansetron HCl 4 mg 06/09/22 20:16 06/09/22 20:25 Ondansetron Odt 4 Mg Tab.Rapdis TRANSLINGU 06/09/22 20:17 4 mg ONCE ONE Administration Oxycodone HCl 5 mg 06/09/22 20:17 06/09/22 21:00 Oxycodone Hcl Immed Release 5 Mg Tablet PO 06/09/22 20:18 5 mg ONCE ONE Administration Tamsulosin HCl 0.8 mg 06/09/22 20:25 06/09/22 20:39 Tamsulosin Hcl 0.4 Mg Capsule PO 06/09/22 20:26 0.8 mg ONCE ONE Administration <KAVEH Pugh - Last Filed: 06/09/22 20:48> Medications Administered Discontinued Medications Generic Name Dose Route Start Last Admin Trade Name Victor Mq PRN Reason Stop Dose Admin Dexamethasone 10 mg 06/09/22 20:25 06/09/22 20:39 Dexamethasone 2 Mg Tablet PO 06/09/22 20:26 10 mg ONCE ONE Administration Ketorolac Tromethamine 60 mg 06/09/22 20:16 06/09/22 20:26 Ketorolac Tromethamine 60 Mg/2 Ml Vial IM 06/09/22 20:17 60 mg ONCE ONE Administration Morphine Sulfate 4 mg 06/09/22 20:16 06/09/22 20:25 Morphine Sulfate 4 Mg/Ml Cartridge IM 06/09/22 20:17 4 mg ONCE ONE Administration Protocol Ondansetron HCl 4 mg 06/09/22 20:16 06/09/22 20:25 Ondansetron Odt 4 Mg Tab.Rapdis TRANSLINGU 06/09/22 20:17 4 mg ONCE ONE Administration Oxycodone HCl 5 mg 06/09/22 20:17 06/09/22 21:00 Oxycodone Hcl Immed Release 5 Mg Tablet PO 06/09/22 20:18 5 mg ONCE ONE Administration Tamsulosin HCl 0.8 mg 06/09/22 20:25 06/09/22 20:39 Tamsulosin Hcl 0.4 Mg Capsule PO 06/09/22 20:26 0.8 mg ONCE ONE Administration <Loren Madrid NP - Last Filed: 06/09/22 21:58> Discharge Plan Discharge Clinical Impression: Left nephrolithiasis, Sliding hiatal hernia <KAVEH Pugh - Last Filed: 06/09/22 20:48> Patient Disposition: Left Against Medical Advice <KAVEH Pugh - Last Filed: 06/09/22 20:48> Instructions: Hiatal Hernia (ED), Kidney Stones (ED) <KAVEH Pugh - Last Filed: 06/09/22 20:48> Additional Instructions: Physical exam indicates pyelonephritis. You have an obstructing renal stone to left kidney, and stone to the right. Your white count is elevated at 16. You have high risk for sepsis and worsening infection. You are leaving against medical advice. Thank you for choosing this emergency department for evaluation. Please follow-up with primary care physician as needed. Return to the emergency department for any new, concerning, or worsening symptoms. <KAVEH Pugh - Last Filed: 06/09/22 20:48> Prescriptions: New ketorolac 10 mg tablet 10 mg PO Q8H Qty: 14 0RF Rx Instructions: Patient tolerated 1st dose in the ER by IM ondansetron 4 mg tablet,disintegrating 4 mg PO Q8H Qty: 14 0RF oxycodone 5 mg tablet 5 mg PO Q6H PRN (Reason: pain) Qty: 14 0RF Rx Instructions: Partial Fill upon patient request. tamsulosin [Flomax] 0.4 mg capsule 0.4 mg PO DAILY 5 Days Qty: 5 0RF levofloxacin 750 mg tablet 750 mg PO DAILY 10 Days Qty: 10 0RF No Action amoxicillin-pot clavulanate [Augmentin] 875-125 mg tablet 1 tab PO Q12H Qty: 20 0RF clarithromycin 500 mg tablet 500 mg PO BID Qty: 20 0RF prednisone 20 mg tablet 40 mg PO DAILY Qty: 10 0RF albuterol sulfate 90 mcg/actuation HFA aerosol inhaler 1 inh inhalation QID PRN (Reason: shortness of breath or wheezing) Qty: 6.7 0RF benzonatate 100 mg capsule 100 mg PO TID PRN (Reason: cough) Qty: 30 0RF ondansetron HCl 4 mg tablet 4 mg PO Q8H PRN (Reason: nausea and vomiting) Qty: 10 0RF azithromycin 250 mg tablet See Rx Instructions .ROUTE .COMPLEX Qty: 6 0RF Rx Instructions: For 250 mg dose pack: take 500 mg today (day 1), then 250 mg for 4 days (days 2-5) <KAVEH Pugh - Last Filed: 06/09/22 20:48> Referrals: Golden Bryant III, MD [Physician] - (Call to make a follow-up appointment) <KAVEH Pugh - Last Filed: 06/09/22 20:48> Stand Alone Forms: Work/School Release <KAVEH Pugh - Last Filed: 06/09/22 20:48> Interventions: ED Discharge Assessment Last Done: 06/09/22 21:28 <KAVEH Pugh - Last Filed: 06/09/22 20:48> Discharge Date/Time: 06/09/22 21:54 <KAVEH Pugh - Last Filed: 06/09/22 20:48>
[2022-06-09 18:49] VITALS: BP 140/92; PULSE 67; RESP 16; TEMP 36.9; O2SAT 99; BMI 22.3
[2022-06-09 19:42] LABS: MANUAL DIFF FLAG NO
[2022-06-09 19:43] LABS: Basophils Absolute Auto 0.1 X10*3/uL (0.0-0.2); Basophils Percent Auto 0.3 % (0-2); Eosinophils Absolute Auto 0.1 X10*3/uL (0.0-0.4); Eosinophils Percent Auto 0.5 % (0-4); Hematocrit 44.8 % (42.0-52.0); Hemoglobin 15.6 g/dl (14.0-18.0); Imm Gran Abs Auto 0.06 X10*3/uL (0.00-0.03); Imm Gran Pct Auto 0.4 % (0.0-0.4); Lymphocytes Absolute Auto 1.6 X10*3/uL (1.2-4.9); Lymphocytes Percent Auto 9.9 % (20-40); Mean Corpuscular HGB Conc 34.8 g/dl (31.0-36.0); Mean Corpuscular Hemoglobin 33.4 pg (27.0-33.0); Mean Corpuscular Volume 95.9 fL (80.0-98.0); Mean Platelet Volume 9.3 fL (9.4-12.4); Monocytes Absolute Auto 0.7 X10*3/uL (0.1-1.2); Monocytes Percent Auto 4.2 % (2-11); Neutrophils Absolute Auto 13.9 x10*3/uL (2.0-8.3); Neutrophils Percent Auto 84.7 % (45-73); Platelet Count 225 X10*3/uL (160-400); Red Blood Count 4.67 X10*6/uL (4.60-5.80); Red Cell Distribution Width 12.7 % (11.0-16.0); White Blood Count 16.4 X10*3/uL (4.8-10.8)
[2022-06-09 19:58] LABS: Alanine Aminotransferase 19 U/L (0-40); Albumin Level 4.7 g/dL (3.5-5.0); Alkaline Phosphatase 69 U/L (39-117); Anion Gap 15 (12-20); Aspartate Amino Transferase 19 U/L (5-37); Bilirubin Total 0.7 mg/dL (0.0-1.0); Blood Urea Nitrogen 10 mg/dL (9-16); Calcium 10.2 mg/dL (8.4-10.2); Carbon Dioxide 25 mmol/L (22-29); Chloride 107 mmol/L (96-108); Creatinine Clr Calc Pharmacy 82.9; Estimated Glomerular Filt Rate > 60; Glucose Random 133 mg/dL (60-115); Magnesium 1.9 mg/dL (1.6-2.6); Potassium 5.1 mmol/L (3.3-5.1); Sodium 142 mmol/L (135-145); Total Protein 7.2 g/dL (6.5-8.0)
[2022-06-09 20:19] LABS: Influenza A PCR NEGATIVE (Negative); Influenza B PCR NEGATIVE (Negative); Resp Syncy Virus RNA Qual PCR NEGATIVE (Negative); SARS COV2 PCR INHOUSE NEGATIVE (Negative)
[2022-06-09 20:21] VITALS: BP 117/77; PULSE 52; RESP 18; O2SAT 99
[2022-06-09 20:25] VITALS: RESP 18
[2022-06-09] MEDS: Ondansetron ODT 4 MG TAB.RAPDIS TRANSLINGU (20:25)
[2022-06-09] MEDS: Morphine Sulfate 4 MG/ML CARTRIDGE IM (20:25)
[2022-06-09] MEDS: Ketorolac Tromethamine 60 MG/2 ML VIAL IM (20:26)
[2022-06-09] MEDS: Tamsulosin HCL 0.4 MG CAPSULE 0.8 MG PO (20:39)
[2022-06-09] MEDS: dexAMETHasone 2 MG TABLET 10 MG PO (20:39)
[2022-06-09] MEDS: oxyCODONE HCl Immed Release 5 MG TABLET PO (21:00)
--- NOTE | 2022-06-09 21:30 | PC.NURSE ---
Addendum entered by Steffany Cobos 06/09/22 21:51: During d/c provider (Aruna Pimentel ) came in to discuss dx and plan of care due to now possible being admitted; pt refused; now leaving AMA; during this time pt's significant other used foul language and upset with provider Original Note: Pt ambulates safely/independently, discharge instructions given and explained, medicated on discharge, leaving with who will be doing the driving, no apparent distress
--- NOTE | 2022-06-09 21:44 | PC.NURSE ---
This commercial underwriter entered the room after hearing patient significant other use foul language toward provider Loren the PA. Provider was attempting to discuss lab results and diagnose and CT results. Pt discharge against medical advice.
== END 2022-06-09 21:54 | disposition left against medical advice (07) ==
PROVIDERS: Physician Assistant Medical; Emergency Provider Internal Medicine
DX: N20.0 Calculus of kidney (principal); K44.9 Diaphragmatic hernia without obstruction or gangrene; Z79.899 Other long term (current) drug therapy; Z20.822 Contact with and (suspected) exposure to COVID-19; Z20.828 Contact with and (suspected) exposure to other viral communicable diseases
CPT/HCPCS: 0241U; 36415; 74176; 80053; 83735; 85025; 85610; 96372; 99284; J1885; J2270; J8540

== ENCOUNTER 2022-08-01 10:44 | Emergency (ER) | payer OTHER, SELFPAY ==
[2022-08-01 11:32] VITALS: BP 159/92; PULSE 95; RESP 20; O2SAT 99; BMI 20.9
--- NOTE | 2022-08-01 11:37 | ED.GENADULT ---
HPI - General Adult General Chief complaint: General Medical Stated complaint: possible hernia tear Time Seen by Provider: 08/01/22 11:37 Source: patient and RN notes reviewed Mode of arrival: ambulatory Limitations: no limitations History of Present Illness HPI narrative: 36-year-old male presents for evaluation of left upper abdominal pain/chest pain. He reports his symptoms started initially 1 week ago when he was ?changing a tire. He reports the symptoms resolved after 1 hour or 2 and then returned 2 days ago when he was shoveling He denies any nausea vomiting, diarrhea, palpitations, shortness of breath. Denies any cough or flu-like symptoms He reports his symptoms are mild, 3/10 and worse with movement Denies any cardiac history. Patient reports that he was concerned because ?I was told I have a hiatal hernia and I do not know if that is the problem today. Related Data Previous Rx's Medication Instructions Recorded azithromycin 250 mg tablet See Rx Instructions PO .COMPLEX #6 06/12/21 tabs ondansetron HCl 4 mg tablet 4 mg PO Q8H PRN nausea and 06/12/21 vomiting #10 tabs albuterol sulfate 90 mcg/actuation 1 inh inhalation QID PRN shortness 06/28/21 aerosol inhaler of breath or wheezing #6.7 grams amoxicillin 875 mg-potassium 1 tab PO Q12H #20 tabs 06/28/21 clavulanate 125 mg tablet (Augmentin) benzonatate 100 mg capsule 100 mg PO TID PRN cough #30 caps 06/28/21 clarithromycin 500 mg tablet 500 mg PO BID #20 tabs 06/28/21 prednisone 20 mg tablet 40 mg PO DAILY #10 tabs 06/28/21 ketorolac 10 mg tablet 10 mg PO Q8H #14 tabs 06/09/22 levofloxacin 750 mg tablet 750 mg PO DAILY 10 days #10 tabs 06/09/22 ondansetron 4 mg disintegrating 4 mg PO Q8H #14 tabs 06/09/22 tablet oxycodone 5 mg tablet 5 mg PO Q6H PRN pain #14 tabs 06/09/22 tamsulosin 0.4 mg capsule (Flomax) 0.4 mg PO DAILY 5 days #5 caps 06/09/22 Allergies Allergy/AdvReac Type Severity Reaction Status Date / Time No Known Allergies Allergy Verified 06/28/21 08:41 Review of Systems Constitutional: Constitutional: Reports as per HPI, Denies chills and Denies fatigue Cardiovascular: Cardiovascular: Denies dyspnea Respiratory: Respiratory: Denies cough and Denies dyspnea Gastrointestinal: Gastrointestinal: Denies constipation and Denies vomiting Genitourinary: Genitourinary: Denies difficulty urinating and Denies dysuria Endocrine: Endocrine: Denies fatigue PMFSH Past Medical History Medical History COVID-19 Social History Social History Alcohol intake: never Patient Tobacco Use Status: Current everyday Tobacco user Substance Use Type: Marijuana Physical Exam ED Vital Signs: Vital Signs - 24 hr 08/01/22 11:32 Pulse Rate 95 Respiratory Rate 20 Blood Pressure 159/92 H Pulse Oximetry 99 Oxygen Delivery Method Room Air BMI result Body Mass Index 20.9 Const General: healthy appearing, comfortable, no acute distress, alert and awake Nutritional Appearance: well nourished Orientation/consciousness: patient oriented x3 Eyes Eyelids: Yes eyelids normal Conjunctivae: conjunctivae normal Sclerae: sclerae normal Corneas: corneas normal Pupils: Equal, round and reactive pupils present EOM: EOMs intact bilaterally Chest Chest palpation & inspection: localized rib tenderness with anteroposterior compression (Left anterior axillary line at the level of the 8th rib) Resp Other: Good and equal breath sounds bilaterally Effort & Inspection: normal respiratory effort, able to speak in complete sentences, no audible wheezes and not labored Auscultation: clear to auscultation bilaterally Skin General skin exam: no rashes or lesions noted and elasticity normal Lesions: no lesions Rashes: no rashes Neuro General: patient oriented x3 Cranial nerves: Yes Equal, round and reactive pupils present Extrem General: Yes full ROM Medical Decision Making Medical Decision Making MDM Narrative: 36-year-old male presents for evaluation of left rib pain/upper abdominal pain that started about a week ago and improved. He appears to re-injure the area when shoveling 2 days ago. This is consistent with a pulled muscle. The patient has no true chest pain, but more left-sided rib pain which is reproducible on exam with palpation. I educated the patient and discussed symptomatic care with the patient. He will return for new or worsening symptoms Differential Diagnosis Left chest wall strain Intercostal muscle strain Hiatal hernia Rib fracture ACS less likely Discharge Plan Discharge Clinical Impression: Chest wall muscle strain Patient Disposition: Home, Self-Care Instructions: Muscle Strain (ED) Additional Instructions: Your history exam is consistent with a pulled muscle in your left chest wall/rib area. Use ibuprofen or Tylenol for discomfort Return for any new or worsening symptoms Prescriptions: No Action amoxicillin-pot clavulanate [Augmentin] 875-125 mg tablet 1 tab PO Q12H Qty: 20 0RF clarithromycin 500 mg tablet 500 mg PO BID Qty: 20 0RF prednisone 20 mg tablet 40 mg PO DAILY Qty: 10 0RF albuterol sulfate 90 mcg/actuation HFA aerosol inhaler 1 inh inhalation QID PRN (Reason: shortness of breath or wheezing) Qty: 6.7 0RF benzonatate 100 mg capsule 100 mg PO TID PRN (Reason: cough) Qty: 30 0RF ondansetron HCl 4 mg tablet 4 mg PO Q8H PRN (Reason: nausea and vomiting) Qty: 10 0RF azithromycin 250 mg tablet See Rx Instructions .ROUTE .COMPLEX Qty: 6 0RF Rx Instructions: For 250 mg dose pack: take 500 mg today (day 1), then 250 mg for 4 days (days 2-5) ketorolac 10 mg tablet 10 mg PO Q8H Qty: 14 0RF Rx Instructions: Patient tolerated 1st dose in the ER by IM ondansetron 4 mg tablet,disintegrating 4 mg PO Q8H Qty: 14 0RF oxycodone 5 mg tablet 5 mg PO Q6H PRN (Reason: pain) Qty: 14 0RF Rx Instructions: Partial Fill upon patient request. tamsulosin [Flomax] 0.4 mg capsule 0.4 mg PO DAILY 5 Days Qty: 5 0RF levofloxacin 750 mg tablet 750 mg PO DAILY 10 Days Qty: 10 0RF
== END 2022-08-01 11:47 | disposition home or self-care (01) ==
LOC: HO.ED 11:44
PROVIDERS: Emergency Provider Student in an Organized Health Care Education/Training Program
DX: S29.011A Strain of muscle and tendon of front wall of thorax, initial encounter (principal); R07.89 Other chest pain; X58.XXXA Exposure to other specified factors, initial encounter; Y93.9 Activity, unspecified; Y92.9 Unspecified place or not applicable; Y99.9 Unspecified external cause status
CPT/HCPCS: 99282

== ENCOUNTER 2022-08-05 10:51 | Emergency (ER) | payer SELFPAY ==
--- NOTE | ~2022-08-05 | XR_ITS ---
EXAMINATION: XR RIBS, LEFT CLINICAL INFORMATION: Left lower rib pain COMPARISON: Comparison chest x-ray from June 2021. TECHNIQUE: 3 views of the left ribs were obtained. FINDINGS: No new dominant consolidations. Small curvilinear scar in the peripheral left upper lobe. No pneumothorax or distinct pleural effusions. No definite evidence for acute bony fracture. There may be older posttraumatic deformities of the anterior eighth through 10th ribs near the costochondral junctions. XR/XR ribs LT min 3V w CXR1V IMPRESSION: No pneumothorax or focal consolidation. No definite evidence for acute bony fracture as seen on this evaluation. Probable old posttraumatic deformities of the anterior eighth through 10th ribs near the costochondral junctions.
--- NOTE | 2022-08-05 10:55 | ECG_ITS ---
Test Reason : CP Blood Pressure : / mmHG Vent. Rate : 078 BPM Atrial Rate : 078 BPM P-R Int : 150 ms QRS Dur : 096 ms QT Int : 330 ms P-R-T Axes : 007 066 050 degrees QTc Int : 376 ms Normal sinus rhythm Incomplete right bundle branch block Borderline ECG When compared with ECG of 28-JUN-2021 08:54, Incomplete right bundle branch block is now Present QT has shortened Referred By: Generic ED Physician Electronically Signed By:BUTCH DORAN
[2022-08-05 11:13] VITALS: BP 141/92; PULSE 83; RESP 20; TEMP 36.9; O2SAT 99; BMI 20.9
--- NOTE | 2022-08-05 11:13 | ED_ITS ---
HPI - Chest Pain General Chief Complaint: Chest Pain <KAVEH Etienne - Last Filed: 08/05/22 11:17> Stated Complaint: Chest pain <KAVEH Etienne - Last Filed: 08/05/22 11:17> Time Seen by Provider: 08/05/22 18:06 <KAVEH Etienne - Last Filed: 08/05/22 11:17> Source: patient <Wilman Darden MD - Last Filed: 08/05/22 18:42> Mode of arrival: ambulatory <Wilman Darden MD - Last Filed: 08/05/22 18:42> Limitations: no limitations <Wilman Darden MD - Last Filed: 08/05/22 18:42> History of Present Illness HPI narrative: 36-year-old male presents with left-sided chest pain. The symptoms started approximately 2 weeks ago when he was taking a blood not off of his wheel. He heard a pop at that time and had some immediate pain. Subsequently the pain and improved significantly but the last 24 hours he has developed severe pain. Greer a pop this morning which developed 10/10 pain. The pain does not radiate. Worse with movement. The pain is described as sharp. Denies any shortness of breath. Pain is also worse with lying down. Patient reports a history of previous rib injuries as well as a pneumothorax. He does not believe this feels like his previous pneumothorax. <Wilman Darden MD - Last Filed: 08/05/22 18:42> Related Data Home Medications: Previous Rx's Medication Instructions Recorded azithromycin 250 mg tablet See Rx Instructions PO .COMPLEX #6 06/12/21 tabs ondansetron HCl 4 mg tablet 4 mg PO Q8H PRN nausea and 06/12/21 vomiting #10 tabs albuterol sulfate 90 mcg/actuation 1 inh inhalation QID PRN shortness 06/28/21 aerosol inhaler of breath or wheezing #6.7 grams amoxicillin 875 mg-potassium 1 tab PO Q12H #20 tabs 06/28/21 clavulanate 125 mg tablet (Augmentin) benzonatate 100 mg capsule 100 mg PO TID PRN cough #30 caps 06/28/21 clarithromycin 500 mg tablet 500 mg PO BID #20 tabs 06/28/21 prednisone 20 mg tablet 40 mg PO DAILY #10 tabs 06/28/21 ketorolac 10 mg tablet 10 mg PO Q8H #14 tabs 06/09/22 levofloxacin 750 mg tablet 750 mg PO DAILY 10 days #10 tabs 06/09/22 ondansetron 4 mg disintegrating 4 mg PO Q8H #14 tabs 06/09/22 tablet oxycodone 5 mg tablet 5 mg PO Q6H PRN pain #14 tabs 06/09/22 tamsulosin 0.4 mg capsule (Flomax) 0.4 mg PO DAILY 5 days #5 caps 06/09/22 lidocaine 5 % topical patch 1 patch topical DAILY #15 ea 08/05/22 naproxen 500 mg tablet (Naprosyn) 500 mg PO BID #20 tabs 08/05/22 oxycodone 5 mg tablet 5 mg PO Q8H PRN pain #10 tabs 08/05/22 <KAVEH Etienne - Last Filed: 08/05/22 11:17> Allergies/Adverse Reactions: Allergies Allergy/AdvReac Type Severity Reaction Status Date / Time No Known Allergies Allergy Verified 06/28/21 08:41 <KAVEH Etienne - Last Filed: 08/05/22 11:17> Review of Systems Review of Systems: CONSTITUTIONAL: Denies weight loss, fever and chills. HEENT: Denies changes in vision and hearing. RESPIRATORY: Denies SOB and cough. CV: Denies palpitations + CP. GI: Denies abdominal pain, nausea, vomiting and diarrhea. : Denies dysuria and urinary frequency. MSK: Denies myalgia and joint pain. SKIN: Denies rash and pruritus. NEUROLOGICAL: Denies headache and syncope. PSYCHIATRIC: Denies recent changes in mood. Denies anxiety and depression. All other ROS are negative unless in HPI <Wilman Darden MD - Last Filed: 08/05/22 18:42> [facility] Past Medical History Medical History: Medical History COVID-19 <KAVEH tEienne - Last Filed: 08/05/22 11:17> Social History Social History: Social History Alcohol intake: never Patient Tobacco Use Status: Current everyday Tobacco user Substance Use Type: Marijuana Advance Directives: No Advance Directives Information Provided: No <KAVEH Etienne - Last Filed: 08/05/22 11:17> Physical Exam Vital Signs: Vital Signs: Last Vital Signs Temp 97.8 F 08/05/22 16:12 Pulse 82 08/05/22 16:12 Resp 16 08/05/22 16:12 BP 141/85 H 08/05/22 16:12 Pulse Ox 97 08/05/22 16:12 O2 Del Method 08/05/22 16:12 BMI result Body Mass Index 20.9 <KAVEH Etienne - Last Filed: 08/05/22 11:17> Vital Signs: Last Vital Signs Temp 97.8 F 08/05/22 16:12 Pulse 82 08/05/22 16:12 Resp 16 08/05/22 16:12 BP 141/85 H 08/05/22 16:12 Pulse Ox 97 08/05/22 16:12 O2 Del Method 08/05/22 16:12 BMI result Body Mass Index 20.9 <Wilman Darden MD - Last Filed: 08/05/22 18:42> GEN: Well developed, no acute distress, alert, oriented HEENT: Normocephalic, atraumatic, normal external ears, nose appears normal, no oropharyngeal edema or exudates Eyes: Normal to appearance Neck: Supple, no lymphadenopathy Respiratory: Talks in complete sentences, no respiratory distress, clear to auscultation bilaterally Cardiovascular: Regular rate and rhythm, no murmurs rubs or gallops Abdomen: Soft, nontender, nondistended, no guarding, no rebound Back: No CVA tenderness Extremities: No clubbing cyanosis or edema Neurologic: No focal neurologic deficits, cranial nerves 2-12 intact, strength is 5/5 bilaterally, gait normal Skin: No rash <Wilman Darden MD - Last Filed: 08/05/22 18:42> Course Course Course Narrative: RME - 36 yo male presents to the ER with left sided chest pain/left lower rib pain that 1st started 2 weeks ago when changing a lug nut at work and felt a pop in his left chest. Pain recurred with shoveling last week and he was seen here on 08/01, diagnosed with muscle strain. Pain not improved. Today in bed heard the sound of a stick breaking when he moved, hear by his significant other as well. This increased the pain prompting re-evaluation. EKG performed. Will check basic labs, troponin, and left sided rib x-rays. <KAVEH Etienne - Last Filed: 08/05/22 11:17> Reevaluation(s) Reevaluation #1: Patient's workup is complete. EKG showed an incomplete right bundle branch block but no evidence of ischemia. X-ray of the chest and ribs did not reveal any acute traumatic injuries. There were some deformities noted which are age indeterminate. There are no discrete fractures. Patient's pain is most likely musculoskeletal likely rib contusion or a form of costochondritis. I will start the patient on appropriate pain management regimen including a discussion about the combination of Tylenol and ibuprofen. He will receive a sm all amount of oxycodone and Lidoderm patch. I am recommending follow-up with a primary care provider. Patient is currently without a doctor. Patient will return for any worsening and uncontrolled pain. Will return for shortness of breath. <Wilman Darden MD - Last Filed: 08/05/22 18:42> Time: 18:23 <Wilman Darden MD - Last Filed: 08/05/22 18:42> Medical Decision Making Medical Decision Making MDM Narrative: 36-year-old male presents with left chest wall pain. Examination is most consistent with musculoskeletal chest pain. This does not appear to be ischemic in nature. Doubt anginal symptoms. EKG was nonischemic. Chest x-ray did not reveal any acute cardiopulmonary disease. The role deformities noted on chest x-ray but no acute traumatic injury. There is no evidence of pulmonary contusion. Vital signs remained stable. This becomes a pain management related issue <Wilman Darden MD - Last Filed: 08/05/22 18:42> Differential Diagnosis Differential Diagnoses: The differential diagnosis associated with the presentation includes (Contusion, strain, strain, costochondritis, chest wall pain, shingles, thoracic radiculopathy, pneumothorax) <Wilman Darden MD - Last Filed: 08/05/22 18:42> Chest wall pain <Wilman Darden MD - Last Filed: 08/05/22 18:42> Admission/Observation Consideration of admission/observation: Escalation of care including admission/observation considered <Wilman Darden MD - Last Filed: 08/05/22 18:42> Lab Data MDM Lab Attestation statement: I reviewed the patient's lab results. <Wilman Darden MD - Last Filed: 08/05/22 18:42> Result Diagrams: 08/05/22 16:10 08/05/22 16:10 <KAVEH Etienne - Last Filed: 08/05/22 11:17> Labs: Lab Results 08/05/22 08/05/22 08/05/22 Range/Units 16:10 16:10 16:10 WBC 8.1 (4.8-10.8) X10*3/uL RBC 4.64 (4.60-5.80) X10*6/uL Hgb 15.5 (14.0-18.0) g/dl Hct 45.9 (42.0-52.0) % MCV 98.9 H (80.0-98.0) fL MCH 33.4 H (27.0-33.0) pg MCHC 33.8 (31.0-36.0) g/dl RDW 13.0 (11.0-16.0) % Plt Count 197 (160-400) X10*3/uL MPV 9.8 (9.4-12.4) fL Immature Gran % (Auto) 0.2 (0.0-0.4) % Neut % (Auto) 52.3 (45-73) % Lymph % (Auto) 36.4 (20-40) % [place] % (Auto) 7.0 (2-11) % Eos % (Auto) 3.5 (0-4) % Baso % (Auto) 0.6 (0-2) % Lymph # (Auto) 3.0 (1.2-4.9) X10*3/uL [place] # (Auto) 0.6 (0.1-1.2) X10*3/uL Eos # (Auto) 0.3 (0.0-0.4) X10*3/uL Baso # (Auto) 0.1 (0.0-0.2) X10*3/uL Abs Immat Gran (auto) 0.02 (0.00-0.03) X10*3/uL Absolute Neuts (auto) 4.2 (2.0-8.3) x10*3/uL Absolute Nucleated RBC 0.000 (0.0-0.012) X10*3/uL Nucleated RBC % (auto) 0.0 (0.0-0.2) /100WBC Sodium 141 (135-145) mmol/L Potassium 5.5 H (3.3-5.1) mmol/L Chloride 108 (96-108) mmol/L Carbon Dioxide 24 (22-29) mmol/L Anion Gap 15 (12-20) BUN 11 (9-16) mg/dL Creatinine 0.85 (0.5-1.4) mg/dL Estim Creat Clear Calc 113.3 Estimated GFR > 60 Random Glucose 87 (60-115) mg/dL Calcium 9.2 D (8.4-10.2) mg/dL Magnesium 2.1 (1.6-2.6) mg/dL Total Bilirubin 0.5 (0.0-1.0) mg/dL Direct Bilirubin < 0.2 (0.0-0.5) mg/dL AST 19 (5-37) U/L ALT 14 (0-40) U/L Alkaline Phosphatase 77 (39-117) U/L Troponin I High Sens < 3.5 (<3.5-35.0) ng/L Total Protein 6.9 (6.5-8.0) g/dL Albumin 4.3 (3.5-5.0) g/dL <KAVEH Etienne - Last Filed: 08/05/22 11:17> Lab Results 08/05/22 08/05/22 08/05/22 Range/Units 16:10 16:10 16:10 WBC 8.1 (4.8-10.8) X10*3/uL RBC 4.64 (4.60-5.80) X10*6/uL Hgb 15.5 (14.0-18.0) g/dl Hct 45.9 (42.0-52.0) % MCV 98.9 H (80.0-98.0) fL MCH 33.4 H (27.0-33.0) pg MCHC 33.8 (31.0-36.0) g/dl RDW 13.0 (11.0-16.0) % Plt Count 197 (160-400) X10*3/uL MPV 9.8 (9.4-12.4) fL Immature Gran % (Auto) 0.2 (0.0-0.4) % Neut % (Auto) 52.3 (45-73) % Lymph % (Auto) 36.4 (20-40) % [place] % (Auto) 7.0 (2-11) % Eos % (Auto) 3.5 (0-4) % Baso % (Auto) 0.6 (0-2) % Lymph # (Auto) 3.0 (1.2-4.9) X10*3/uL [place] # (Auto) 0.6 (0.1-1.2) X10*3/uL Eos # (Auto) 0.3 (0.0-0.4) X10*3/uL Baso # (Auto) 0.1 (0.0-0.2) X10*3/uL Abs Immat Gran (auto) 0.02 (0.00-0.03) X10*3/uL Absolute Neuts (auto) 4.2 (2.0-8.3) x10*3/uL Absolute Nucleated RBC 0.000 (0.0-0.012) X10*3/uL Nucleated RBC % (auto) 0.0 (0.0-0.2) /100WBC Sodium 141 (135-145) mmol/L Potassium 5.5 H (3.3-5.1) mmol/L Chloride 108 (96-108) mmol/L Carbon Dioxide 24 (22-29) mmol/L Anion Gap 15 (12-20) BUN 11 (9-16) mg/dL Creatinine 0.85 (0.5-1.4) mg/dL Estim Creat Clear Calc 113.3 Estimated GFR > 60 Random Glucose 87 (60-115) mg/dL Calcium 9.2 D (8.4-10.2) mg/dL Magnesium 2.1 (1.6-2.6) mg/dL Total Bilirubin 0.5 (0.0-1.0) mg/dL Direct Bilirubin < 0.2 (0.0-0.5) mg/dL AST 19 (5-37) U/L ALT 14 (0-40) U/L Alkaline Phosphatase 77 (39-117) U/L Troponin I High Sens < 3.5 (<3.5-35.0) ng/L Total Protein 6.9 (6.5-8.0) g/dL Albumin 4.3 (3.5-5.0) g/dL <Wilman Darden MD - Last Filed: 08/05/22 18:42> Independent Interpretation I performed an independent interpretation of an: EKG and Plain X-Ray (No acute traumatic injury, no evidence of pneumo thorax) <Wilman Darden MD - Last Filed: 08/05/22 18:42> Interpretation: Normal sinus rhythm heart rate 78, normal intervals, incomplete right bundle-branch block, tremulous baseline <Wilman Darden MD - Last Filed: 08/05/22 18:42> Radiology Impression Discussion of test interpretation with radiology: I have reviewed the radiologist's reading. (IMPRESSION: No pneumothorax or focal consolidation. No definite evidence for acute bony fracture as seen on this evaluation. Probable old posttraumatic deformities of the anterior eighth through 10th ribs near the costochondral junctions. Dictated By:Jules Barnettgned By:<Electronically si) <Wilman Darden MD - Last Filed: 08/05/22 18:42> Tests considered The following testing was considered but not selected: CT chest <Wilman Darden MD - Last Filed: 08/05/22 18:42> Prescription Management I considered prescription management with: Pain Medication <Wilman Darden MD - Last Filed: 08/05/22 18:42> Discharge Plan Discharge Clinical Impression: Acute chest wall pain <KAVEH Etienne - Last Filed: 08/05/22 11:17> Patient Disposition: Home, Self-Care <KAVEH Etienne - Last Filed: 08/05/22 11:17> Instructions: Chest Wall Pain (ED) <KAVEH Etienne - Last Filed: 08/05/22 11:17> Prescriptions: New naproxen [Naprosyn] 500 mg tablet 500 mg PO BID Qty: 20 0RF lidocaine 5 % adhesive patch,medicated 1 patch topical DAILY Qty: 15 0RF Rx Instructions: leave on most painful area for up to 12 hrs oxycodone 5 mg tablet 5 mg PO Q8H PRN (Reason: pain) Qty: 10 0RF Rx Instructions: Partial Fill upon patient request. No Action amoxicillin-pot clavulanate [Augmentin] 875-125 mg tablet 1 tab PO Q12H Qty: 20 0RF clarithromycin 500 mg tablet 500 mg PO BID Qty: 20 0RF prednisone 20 mg tablet 40 mg PO DAILY Qty: 10 0RF albuterol sulfate 90 mcg/actuation HFA aerosol inhaler 1 inh inhalation QID PRN (Reason: shortness of breath or wheezing) Qty: 6.7 0RF benzonatate 100 mg capsule 100 mg PO TID PRN (Reason: cough) Qty: 30 0RF ondansetron HCl 4 mg tablet 4 mg PO Q8H PRN (Reason: nausea and vomiting) Qty: 10 0RF azithromycin 250 mg tablet See Rx Instructions .ROUTE .COMPLEX Qty: 6 0RF Rx Instructions: For 250 mg dose pack: take 500 mg today (day 1), then 250 mg for 4 days (days 2-5) ketorolac 10 mg tablet 10 mg PO Q8H Qty: 14 0RF Rx Instructions: Patient tolerated 1st dose in the ER by IM ondansetron 4 mg tablet,disintegrating 4 mg PO Q8H Qty: 14 0RF oxycodone 5 mg tablet 5 mg PO Q6H PRN (Reason: pain) Qty: 14 0RF Rx Instructions: Partial Fill upon patient request. tamsulosin [Flomax] 0.4 mg capsule 0.4 mg PO DAILY 5 Days Qty: 5 0RF levofloxacin 750 mg tablet 750 mg PO DAILY 10 Days Qty: 10 0RF <KAVEH Etienne - Last Filed: 08/05/22 11:17>
[2022-08-05 16:12] VITALS: BP 141/85; PULSE 82; RESP 16; TEMP 36.6; O2SAT 97
--- NOTE | 2022-08-05 16:13 | MHC.EDTECH ---
pt blood drawn and sent to lab ,vitals sign taken .
[2022-08-05 16:16] LABS: MANUAL DIFF FLAG NO
[2022-08-05 16:19] LABS: Basophils Absolute Auto 0.1 X10*3/uL (0.0-0.2); Basophils Percent Auto 0.6 % (0-2); Eosinophils Absolute Auto 0.3 X10*3/uL (0.0-0.4); Eosinophils Percent Auto 3.5 % (0-4); Hematocrit 45.9 % (42.0-52.0); Hemoglobin 15.5 g/dl (14.0-18.0); Imm Gran Abs Auto 0.02 X10*3/uL (0.00-0.03); Imm Gran Pct Auto 0.2 % (0.0-0.4); Lymphocytes Percent Auto 36.4 % (20-40); Mean Corpuscular HGB Conc 33.8 g/dl (31.0-36.0); Mean Corpuscular Hemoglobin 33.4 pg (27.0-33.0); Mean Corpuscular Volume 98.9 fL (80.0-98.0); Mean Platelet Volume 9.8 fL (9.4-12.4); Monocytes Absolute Auto 0.6 X10*3/uL (0.1-1.2); Neutrophils Absolute Auto 4.2 x10*3/uL (2.0-8.3); Neutrophils Percent Auto 52.3 % (45-73); Platelet Count 197 X10*3/uL (160-400); Red Blood Count 4.64 X10*6/uL (4.60-5.80); White Blood Count 8.1 X10*3/uL (4.8-10.8)
[2022-08-05 16:40] LABS: Alanine Aminotransferase 14 U/L (0-40); Albumin Level 4.3 g/dL (3.5-5.0); Alkaline Phosphatase 77 U/L (39-117); Anion Gap 15 (12-20); Aspartate Amino Transferase 19 U/L (5-37); Bilirubin Direct < 0.2 mg/dL (0.0-0.5); Bilirubin Total 0.5 mg/dL (0.0-1.0); Blood Urea Nitrogen 11 mg/dL (9-16); Calcium 9.2 mg/dL (8.4-10.2); Carbon Dioxide 24 mmol/L (22-29); Chloride 108 mmol/L (96-108); Creatinine Clr Calc Pharmacy 113.3; Estimated Glomerular Filt Rate > 60; Glucose Random 87 mg/dL (60-115); Magnesium 2.1 mg/dL (1.6-2.6); Potassium 5.5 mmol/L (3.3-5.1); Sodium 141 mmol/L (135-145); Total Protein 6.9 g/dL (6.5-8.0)
[2022-08-05 16:43] LABS: Troponin-I High Sensitivity < 3.5 ng/L (<3.5-35.0)
[2022-08-05 18:55] VITALS: BP 127/83; PULSE 72; RESP 18; O2SAT 98
[2022-08-05] MEDS: Lidocaine 4 % Patch ADH..PATCH 1 PATCH TRANSDERMA (18:59)
[2022-08-05] MEDS: Acetaminophen 325 MG TABLET 975 MG PO (18:59)
== END 2022-08-05 19:05 | disposition home or self-care (01) ==
PROVIDERS: Physician Assistant; Emergency Provider Emergency Medicine
DX: R07.89 Other chest pain (principal); I45.10 Unspecified right bundle-branch block; F17.200 Nicotine dependence, unspecified, uncomplicated; F12.90 Cannabis use, unspecified, uncomplicated
CPT/HCPCS: 36415; 71101; 80048; 80076; 83735; 84484; 85025; 93005; 99283; 99285